=== PATIENT | male | born 1970 ===

== ENCOUNTER 2022-04-17 08:14 | Observation (INO) ==
[2022-04-17] MEDS ORDERED: Ketorolac 30 MG/ML VIAL IVP ONE (08:59)
[2022-04-17] MEDS ORDERED: Morphine Sulfate 2 MG/ML SYRINGE IVP ONE (08:59)
[2022-04-17] MEDS ORDERED: Ondansetron 4 MG/2 ML VIAL ONE (09:23)
[2022-04-17] MEDS ORDERED: Ondansetron 4 MG/2 ML VIAL IVP ONE (09:25)
[2022-04-17 09:38] LABS: Basophils % 0.3 %; Eosinophils # 0.2 K/mcL (0.0-0.6); Eosinophils % 1.3 %; Hemoglobin 13.4 g/dL (12.9-16.9); Immature Granulocytes % 1.1 % (0-4); Lymphocytes # 2.1 K/mcL (0.6-4.6); Lymphocytes % 17.6 %; Mean Corpuscular HGB Conc 35.3 g/dL (31.6-35.5); Mean Corpuscular Hemoglobin 31.5 pg (28.0-33.3); Mean Corpuscular Volume 89.2 fL (83.0-100.0); Mean Platelet Volume 8.9 fL (9.4-12.4); Monocytes # 1.1 K/mcL (0.0-1.3); Monocytes % 9.6 %; Neutrophils # 8.4 K/mcL (1.6-8.9); Platelet Count 321 K/mcL (140-400); Red Blood Count 4.26 M/mcL (4.19-5.50); Red Cell Distribution Width 12.9 % (11.5-14.5); Segmented Neutrophils % 70.1 %; White Blood Count 11.9 K/mcL (4.3-11.1)
[2022-04-17 09:47] LABS: INR 0.9; Prothrombin Time 10.5 Seconds (9.4-12.1)
[2022-04-17 09:49] LABS: Activated Partial Thrombo Time 30.6 Seconds (26.0-36.0)
[2022-04-17 09:55] LABS: BUN/Creatinine Ratio 11 (6-26); Blood Urea Nitrogen 8 mg/dL (6-20); Calcium 9.1 mg/dL (8.6-10.3); Carbon Dioxide 26 mEq/L (23-29); Chloride 88 mEq/L (98-107); Glucose 118 mg/dL (70-105); Osmolality,Calculated 251 (280-300); Potassium 4.2 mEq/L (3.5-5.1); Sodium 121 mEq/L (136-145)
[2022-04-17] MEDS ORDERED: *HR* HYDROmorphone (PF) 1 MG/ML SYRINGE IVP ONE (12:24)
[2022-04-17] MEDS ORDERED: 0.9 % Sodium Chloride 1,000 ML IV ONE (13:20)
[2022-04-17] MEDS ORDERED: Acetaminophen 325 MG TABLET PO PRN (13:39)
[2022-04-17] MEDS ORDERED: Ondansetron 4 MG/2 ML VIAL IVP PRN (13:39)
[2022-04-17] MEDS ORDERED: Ibuprofen 400 MG TABLET PO PRN (13:39)
[2022-04-17] MEDS ORDERED: Melatonin 3 MG TABLET PO PRN (13:39)
[2022-04-17] MEDS ORDERED: Naloxone 0.4 MG/ML INJ IVP PRN (13:39)
[2022-04-17] MEDS ORDERED: *HR* HYDROcodone/Acet 5/325 mg TABLET PO PRN (13:42)
[2022-04-17 14:29] LABS: Bilirubin,Urine Negative (Negative); Blood,Urine Negative (Negative); Clarity,Urine Clear (Clear); Color,Urine Yellow (Yellow); Glucose,Urine (UA) Normal (Normal); Ketones,Urine Negative (Negative); Leukocyte Esterase,Urine Negative (Negative); Nitrite,Urine Negative (Negative); Protein,Urine Trace mg/dL (Neg-Trace); Urobilinogen,Urine Normal (Normal)
[2022-04-17] MEDS: 0.9 % Sodium Chloride 1,000 ML IVC SCH (16:34)
[2022-04-17] MEDS: *HR* Heparin 5,000 UNIT/ML VIAL SQ SCH (18:00)
[2022-04-18] MEDS: 0.9 % Sodium Chloride 1,000 ML IVC SCH (02:28)
[2022-04-18 03:26] LABS: BUN/Creatinine Ratio 8 (6-26); Blood Urea Nitrogen 6 mg/dL (6-20); Calcium 8.3 mg/dL (8.6-10.3); Carbon Dioxide 26 mEq/L (23-29); Chloride 97 mEq/L (98-107); Glucose 97 mg/dL (70-105); Osmolality,Calculated 262 (280-300); Potassium 4.2 mEq/L (3.5-5.1); Sodium 127 mEq/L (136-145)
[2022-04-18] MEDS: *HR* Heparin 5,000 UNIT/ML VIAL SQ SCH (05:30)
[2022-04-18 10:58] VITALS: BP 157/97; PULSE 70; TEMP 98.2; O2SAT 96
== END 2022-04-18 11:34 | disposition home or self-care (01) | DRG 347 ==
LOC: EMEROOARM 08:14 → 3ANU 08:14 → SUATTDRO 14:26 → 3ANU 15:19
PROVIDERS: ADMIT Internal Medicine; ATTEND Family Medicine